=== PATIENT | male | born 2000 | race Two or more races ===

== ENCOUNTER 2023-05-26 18:59 | Emergency (ER) | payer SELFPAY ==
[~2023-05-26] VITALS: Ht 175.3 cm; Wt 87.0 kg
[2023-05-26] MEDS ORDERED: IBUP-1454 PO (20:20)
[2023-05-26 23:10] VITALS: BP 115/61; PULSE 65; RESP 19; TEMP 99.2; O2SAT 100
== END 2023-05-26 23:23 | disposition home or self-care (01) ==
LOC: ER 18:59
DX: S62.357A Nondisplaced fracture of shaft of fifth metacarpal bone, left hand, initial encounter for closed fracture (principal); W22.8XXA Striking against or struck by other objects, initial encounter; Y93.89 Activity, other specified; Y92.89 Other specified places as the place of occurrence of the external cause; Y99.8 Other external cause status
CPT/HCPCS: 29125; 73130

== ENCOUNTER 2023-08-12 14:14 | Emergency (ER) | payer MEDICAID, OTHER ==
[~2023-08-12] VITALS: Ht 172.7 cm; Wt 91.0 kg
[~2023-08-12 14:14] MED LIST: IBUP-1454 PO
[2023-08-12] MEDS ORDERED: KETOROLAC TROMETH 60MG/2ML VIAL IM ONE (16:00)
[2023-08-12] MEDS ORDERED: IBUP-1455 PO (16:45)
[2023-08-12] MEDS ORDERED: ACE3T PO (16:45)
[2023-08-12 18:41] VITALS: BP 145/59; PULSE 69; RESP 18; TEMP 97.6; O2SAT 99
== END 2023-08-12 18:45 | disposition home or self-care (01) ==
LOC: ER 14:14
DX: S16.1XXA Strain of muscle, fascia and tendon at neck level, initial encounter (principal); S63.592A Other specified sprain of left wrist, initial encounter; S63.591A Other specified sprain of right wrist, initial encounter; S29.012A Strain of muscle and tendon of back wall of thorax, initial encounter; Z79.1 Long term (current) use of non-steroidal anti-inflammatories (NSAID); V89.2XXA Person injured in unspecified motor-vehicle accident, traffic, initial encounter; Y93.I9 Activity, other involving external motion; Y92.89 Other specified places as the place of occurrence of the external cause; Y99.8 Other external cause status
CPT/HCPCS: 72040; 72070; 73110; 96372; 99284; J1885

== ENCOUNTER 2024-06-13 17:11 | Emergency (ER) | payer MEDICAID, OTHER ==
[~2024-06-13] VITALS: Ht 175.3 cm; Wt 103.0 kg
[~2024-06-13 17:11] MED LIST changes: +ACE3T PO; +IBUP-1455 PO
[2024-06-13] MEDS: ACETAMINOPHEN 325 MG TAB PO ONE (17:24)
[2024-06-13 18:18] VITALS: BP 146/90; PULSE 61; RESP 20; TEMP 99.4; O2SAT 98
[2024-06-13] MEDS ORDERED: IBUP-1456 PO (19:36)
[2024-06-13] MEDS ORDERED: KETOROLAC TROMETH 60MG/2ML VIAL IM ONE (19:45)
== END 2024-06-13 20:11 | disposition home or self-care (01) ==
LOC: ER 17:11
DX: S62.394A Other fracture of fourth metacarpal bone, right hand, initial encounter for closed fracture (principal); S62.396A Other fracture of fifth metacarpal bone, right hand, initial encounter for closed fracture; Z79.899 Other long term (current) drug therapy; W22.8XXA Striking against or struck by other objects, initial encounter; Y93.89 Activity, other specified; Y92.89 Other specified places as the place of occurrence of the external cause; Y99.8 Other external cause status
CPT/HCPCS: 29125; 73110; 73130